=== PATIENT | male | born 1990 | race Caucasian/White ===

== ENCOUNTER 2017-09-01 01:22 | Emergency (ER) | payer OTHER ==
[2017-09-01 01:47] LABS: BASOPHILS # (AUTO) 0.1 10^3/uL (0.0-0.1); BASOPHILS % (AUTO) 0.7 %; EOSINOPHILS # (AUTO) 0.1 10^3/uL (0.0-0.7); EOSINOPHILS % (AUTO) 1.5 %; HGB - HEMOGLOBIN 15.7 g/dL (14.0-18.0); LYMPHOCYTES # (AUTO) 2.6 10^3/uL (1.5-3.5); LYMPHOCYTES % (AUTO) 26.4 %; MEAN CORPUSCULAR HEMOGLOBIN 29.6 pg (27.0-31.0); MEAN CORPUSCULAR HGB CONC 34.9 g/dL (32.0-36.0); MEAN CORPUSCULAR VOLUME 84.9 fL (80.0-94.0); MEAN PLATELET VOLUME 7.8 fL (7.4-11.4); MONOCYTES # (AUTO) 0.8 10^3/uL (0.0-1.0); MONOCYTES % (AUTO) 8.6 %; NEUTROPHILS # (AUTO) 6.1 10^3/uL (1.5-6.6); NEUTROPHILS % (AUTO) 62.8 %; RED CELL DISTRIBUTION WIDTH 13.1 % (12.0-15.0); UNCORRECTED WHITE BLOOD COUNT 9.6 x10^3/uL; WHITE BLOOD COUNT 9.6 x10^3/uL (4.8-10.8)
[2017-09-01 01:57] LABS: ALBUMIN/GLOBULIN RATIO 1.6 (1.0-2.2); BILIRUBIN,TOTAL 0.9 mg/dL (0.2-1.0); CALCIUM 9.1 mg/dL (8.5-10.3); CREATININE 1.2 mg/dL (0.6-1.2); TOTAL PROTEIN 7.9 g/dL (6.7-8.2)
[2017-09-01 01:59] LABS: BILIRUBIN,URINE NEGATIVE (NEGATIVE); PH,URINE 6.5 PH (5.0-7.5)
[2017-09-01 02:04] LABS: UA CHARGE (STRIP ONLY) YES; UR CULTURE IF IND NOT INDICATED
[2017-09-01] MEDS ORDERED: SODIUM CHLORIDE 0.9% 1,000 ML IV ONE (02:19)
[2017-09-01] MEDS ORDERED: SODIUM CHLORIDE FLUSH 0.9% 10 ML SYRINGE IVP ONE ×2 (02:24→04:23)
--- NOTE | 2017-09-01 02:30 | XRAY Preliminary Report ---
Exam: XR ABDOMEN ACUTE IMPRESSION: 1. No acute abnormality seen in the chest or abdomen. [facility] SITE ID: [id number]
--- NOTE | 2017-09-01 02:32 | XRAY Report ---
EXAM: ABDOMINAL SERIES AND PA CHEST EXAM DATE: 09/01/2017 02:06 AM. CLINICAL HISTORY: Abdominal pain, hx of GI surgery. COMPARISON: Chest, 02/04/2016. TECHNIQUE: 2 views abdomen and 1 view chest. FINDINGS: CHEST: Lungs/Pleura: No focal opacities. No effusion or pneumothorax. Mediastinum: Within exam limitations, cardiomediastinal contour is normal. ABDOMEN: Bowel Gas Pattern: No dilated loops or abnormal air-fluid levels. Moderate stool in the right hemicol on. Free Air: None. Other: Status post cholecystectomy. IMPRESSION: 1. No acute abnormality seen in the chest or abdomen. [facility] Referring Provider Line: [phone] SITE ID: [id number]
[2017-09-01] MEDS ORDERED: IOPAMIDOL-300 100 ML VIAL ONE (02:47)
[2017-09-01] MEDS ORDERED: MORPHINE 10 MG/ML VIAL IVP STA ×3 (02:54→04:14)
[2017-09-01] MEDS ORDERED: diphenhydrAMINE INJ 50 MG/ML VIAL IVP STA (03:05)
[2017-09-01] MEDS ORDERED: FAMOTIDINE 20 MG/2 ML VIAL IVP STA (03:05)
[2017-09-01] MEDS ORDERED: MORPHINE 10 MG/ML VIAL ONE ×3 (03:05→04:21)
[2017-09-01] MEDS ORDERED: methylPREDNISolone SUCCINATE 125 MG/2 ML VIAL IVP STA (03:05)
[2017-09-01] MEDS ORDERED: diphenhydrAMINE INJ 50 MG/ML VIAL ONE (03:11)
[2017-09-01] MEDS ORDERED: methylPREDNISolone SUCCINATE 125 MG/2 ML VIAL ONE (03:11)
[2017-09-01] MEDS ORDERED: EPINEPHrine 1 MG/ML AMP ONE ×3 (03:15→03:28)
[2017-09-01] MEDS ORDERED: IOPAMIDOL-300 100 ML VIAL IVP ONE (03:16)
[2017-09-01] MEDS ORDERED: RACEPINEPHRINE 2.25% NEB INH ONE (03:29)
[2017-09-01] MEDS ORDERED: SODIUM CHLORIDE INHALATION 3 ML NEB ONE (03:30)
[2017-09-01] MEDS ORDERED: FAMOTIDINE 20 MG/50 ML 50 ML IV ONE (03:33)
--- NOTE | 2017-09-01 03:33 | CT Preliminary Report ---
Exam: CT ABDOMEN/PELVIS W/ IMPRESSION: 1. Inflammatory changes in the fat adjacent to the colon at the junction of the descending and sigmoi d colon, consistent with epiploic appendagitis. 2. No other acute abnormality seen. [facility] SITE ID: [id number]
--- NOTE | 2017-09-01 03:35 | CT Report ---
EXAM: CT ABDOMEN AND PELVIS EXAM DATE: 09/01/2017 02:58 AM. CLINICAL HISTORY: Abdominal pain. COMPARISONS: Abdomen radiographs, 09/01/2017. TECHNIQUE: Routine helical CT imaging was performed through the abdomen and pelvis. IV contrast: Kim onic. Enteric contrast: No. Reconstructions: Coronal and sagittal. In accordance with CT protocol optimization, one or more of the following dose reduction techniques w ere utilized for this exam: automated exposure control, adjustment of mA and/or KV based on patient s ize, or use of iterative reconstructive technique. FINDINGS: Lung Bases: Minimal bibasilar atelectasis. Liver: No focal lesion identified. Gallbladder/Bile Ducts: Status post cholecystectomy. Spleen: Normal. Pancreas: Normal. Adrenal Glands: Normal. Kidneys: Normal. No masses or hydronephrosis. Peritoneal Cavity/Bowel: No bowel obstruction seen. No lymphadenopathy. No free air or free fluid. In flammatory changes in the fat at the junction of the descending and sigmoid colon, for example series 3 image 63, consistent with epiploic appendagitis. No definite diverticulitis. Appendix is not seen. No evidence of appendicitis. Pelvic Organs: Normal. The bladder and visualized pelvic organs are within normal limits. Vasculature: No aneurysms or other significant abnormality. Bones: No significant abnormality. Other: None. IMPRESSION: 1. Inflammatory changes in the fat adjacent to the colon at the junction of the descending and sigmoi d colon, consistent with epiploic appendagitis. 2. No other acute abnormality seen. [facility] Referring Provider Line: [phone] SITE ID: [id number]
--- NOTE | 2017-09-01 03:52 | ED Physician Documentation ---
PD HPI ABD PAIN - Stated complaint Stated Complaint: ABD PX - Chief complaint Chief Complaint: Abd Pain - History obtained from History obtained from: Patient, Family - History of Present Illness Timing - onset: Today Timing - details: Abrupt onset, Still present Quality: Aching, Sharp Location: LLQ Worsened by: Position, Palpation Associated symptoms: No: Fever, Nausea, Vomiting, Diarrhea, Constipation Similar symptoms before: Has not had sx before Recently seen: Not recently seen - Additional information Additional information: Patient is a 27 year old male, status post cholecystectomy who is presenting to the emergency department for left lower quadrant pain. Patient states that it yesterday yesterday. it is sharp in nature, with mild radiation to his back. Patient states similar to his gallbladder pain. Patient stateds that he had a normal bowel movement yesterday. Patient denies any testicular pain or urinary complaints. Review of Systems Constitutional: denies: Fever, Chills Eyes: reports: Reviewed and negative Ears: reports: Reviewed and negative Nose: reports: Reviewed and negative Throat: reports: Reviewed and negative Cardiac: denies: Chest pain / pressure, Palpitations Respiratory: denies: Cough, Wheezing GI: reports: Abdominal Pain. denies: Nausea, Vomiting, Constipation, Diarrhea : denies: Dysuria, Frequency, Unable to Void Skin: denies: Rash, Lesions Musculoskeletal: reports: Back pain. denies: Neck pain Neurologic: denies: Generalized weakness, Focal weakness Immunocompromised: denies: Immunocompromised PD PAST MEDICAL HISTORY - Past Medical History Past Medical History: No Cardiovascular: None Respiratory: None Neuro: None Endocrine/Autoimmune: None GI: None : None HEENT: None Psych: None Musculoskeletal: None Derm: None - Past Surgical History Past Surgical History: Yes General: Cholecystectomy, Appendectomy HEENT: Tonsil/Adenoidectomy - Present Medications Home Medications: Ambulatory Orders Medication Instructions Recorded Confirmed Hydrocodone/Acetaminophen 1 - 2 each PO Q6H PRN #14 tablet 09/01/17 [Hydrocodon-Acetaminophen 5-325] Ondansetron Odt [Zofran] 4 mg TL Q6H PRN #20 tablet 09/01/17 Prednisone 40 mg PO DAILY 5 Days tablet 09/01/17 - Allergies Allergies/Adverse Reactions: Allergies Allergy/AdvReac Type Severity Reaction Status Date / Time Iodinated Contrast- Oral and Allergy Severe Anaphylaxis Verified 09/01/17 03:40 IV Dye - Social History Does the pt smoke?: No Smoking Status: Never smoker Does the pt drink ETOH?: No Does the pt have substance abuse?: No - Immunizations Immunizations are current?: Yes - POLST Patient has POLST: No PD ED PE NORMAL - Vitals Vital signs reviewed: Yes - General General: Alert and oriented X 3, Well developed/nourished - HEENT HEENT: Atraumatic, PERRL - Neck Neck: Supple, no meningeal sign, No JVD - Cardiac Cardiac: RRR, No murmur - Respiratory Respiratory: No respiratory distress, Clear bilaterally - 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 No: Distended, Rebound Results - Vitals Vitals: Vital Signs - 24 hr 09/01/17 09/01/17 09/01/17 01:28 03:16 03:30 Temperature 36.4 C L Heart Rate 73 99 85 Respiratory 18 24 20 Rate Blood Pressure 153/88 H 137/80 H O2 Saturation 96 97 09/01/17 09/01/17 09/01/17 03:40 03:57 04:46 Temperature Heart Rate 91 73 79 Respiratory 24 16 16 Rate Blood Pressure 133/84 H 132/84 H 143/89 H O2 Saturation 98 98 95 09/01/17 05:04 Temperature Heart Rate 98 Respiratory 17 Rate Blood Pressure 137/85 H O2 Saturation 97 Oxygen O2 Source Nasal cannula - EKG (time done) 0422 Rate: Rate (enter#) (68) Rhythm: NSR [place]: Normal Intervals: Normal [place] QRS: Normal Ischemia: Normal ST segments - Labs Labs: Laboratory Tests 09/01/17 09/01/17 09/01/17 01:40 01:40 01:50 WBC 9.6 RBC 5.30 Hgb 15.7 Hct 45.0 MCV 84.9 MCH 29.6 MCHC 34.9 RDW 13.1 Plt Count 252 MPV 7.8 Neut # 6.1 Lymph # 2.6 [place] # 0.8 Eos # 0.1 Baso # 0.1 Absolute Nucleated RBC 0.00 Nucleated RBC % 0.0 Sodium 137 Potassium 4.0 Chloride 101 Carbon Dioxide 26 Anion Gap 10.0 BUN 16 Creatinine 1.2 Estimated GFR (MDRD) 72 L Glucose 88 Calcium 9.1 Total Bilirubin 0.9 AST 35 ALT 31 Alkaline Phosphatase 85 Total Protein 7.9 Albumin 4.9 Globulin 3.0 Albumin/Globulin Ratio 1.6 Lipase 19 L Urine Color YELLOW Urine Clarity CLEAR Urine pH 6.5 Ur Specific [place] 1.015 Urine Protein NEGATIVE Urine Glucose (UA) NEGATIVE Urine Ketones NEGATIVE Urine Occult Blood TRACE-INTA Urine Nitrite NEGATIVE Urine Bilirubin NEGATIVE Urine Urobilinogen 0.2 (NORMAL) Ur Leukocyte Esterase NEGATIVE Ur Microscopic Review NOT INDICATED Urine Culture Comments NOT INDICATED - Rads (name of study) abd series Radiology: Final report received (no acute abnormalities) ct abdomen and pelvis Radiology: Final report received (epiplic appendagitis) PD MEDICAL DECISION MAKING - ED course Complexity details: reviewed old records, reviewed results, re-evaluated patient , considered differential, d/w patient, d/w family ED course: Patient was seen and examined at bedside. labs were drawn and urine was collected. Abdominal series was ordered and was within normal limits. Patient was treated with ns bolus and morphine was ordered as well as abdominal CT. When patient returned from CT he had had an allergic reaction. Patient had wheezing and some facial swelling. Patient was treated with solumedrol, bendaryl 50mg, epinephrine(IM and racemic) and pepcid as well as iv fluids. Patient responded well to the therapy and the allergic side effects diminished. Patient was treated with morphine for pain. Patient's findings were consistent with epiploic appendagitis. Patient completed of back pain with radiation to his chest so an ekg was performed and was within normal limits. Upon discharge patient had no signs of allergic reaction and stated that he was hungry and wanted to eat. Patient was given detailed discharge instructions and was stable for discharge with outpatient follow up. Departure - Departure Disposition: 01 Home, Self Care Clinical Impression: Epiploic appendagitis Condition: Good Instructions: Abdominal Pain Follow-Up: Logan Quintanilla MD [Provider Admit Priv/Credential] - Within 3 Days Prescriptions: Hydrocodone/Acetaminophen [Hydrocodon-Acetaminophen 5-325] 1 - 2 each PO Q6H PRN #14 tablet PRN Reason: pain Ondansetron Odt [Zofran] 4 mg TL Q6H PRN #20 tablet PRN Reason: Nausea / Vomiting Prednisone 40 mg PO DAILY 5 Days tablet Comments: Your symptoms today were being caused by epiploic appendagitis. It is twisting of your intestines. It is normally self limited in nature normally lasting 3- 10 days. You should take motrin for pain and percocet for breakthrough pain. You should follow up with Dr. Quintanilla if the symptoms persist though the weekend. Your other symptoms were caused by an allergic reaction. You should take steroids for the next for days and benadryl and pepcid. You should never take IV contrast again. You can return to the emergency department at any time for new, worsening or uncontrollable symptoms, shortness of breath wheezing. Forms: Activity restrictions
[2017-09-01] MEDS ORDERED: KETOROLAC 15 MG/ML VIAL IVP STA (04:15)
[2017-09-01] MEDS ORDERED: KETOROLAC 15 MG/ML VIAL ONE (04:21)
[2017-09-01] MEDS ORDERED: oxyCODONE/ACET 5/325 Prepack 4 PO STA (05:48)
[2017-09-01 06:08] VITALS: BP 156/87
[2017-09-01] MEDS ORDERED: oxyCODONE/ACET 5/325 Prepack 4 PO ONE (06:08)
== END 2017-09-01 06:17 | disposition home or self-care (01) ==
LOC: ED 01:22
DX: K63.89 Other specified diseases of intestine (principal); Z90.49 Acquired absence of other specified parts of digestive tract; R07.9 Chest pain, unspecified; T78.40XA Allergy, unspecified, initial encounter; R06.2 Wheezing; R22.0 Localized swelling, mass and lump, head
CPT/HCPCS: 36415; 74022; 74177; 80053; 81003; 83690; 85025; 93005; 94640; 96361; 96374; 96375; 96376; 99284; 99285; A9270; Q9967; 81001; 87086

== ENCOUNTER 2018-09-17 13:03 | Outpatient (CLI) | payer OTHER | END 2018-09-17 13:04 | disposition critical access hospital (66) | LOC: EMS 13:03 | PROVIDERS: ATTEND Surgery | DX: R55 Syncope and collapse (principal) | CPT/HCPCS: A0425; A0427 ==

== ENCOUNTER 2018-09-17 13:28 | Emergency (ER) | payer OTHER ==
[2018-09-17] MEDS ORDERED: SODIUM CHLORIDE 0.9% 1,000 ML IV ONE (13:37)
[2018-09-17 13:56] LABS: BASOPHILS # (AUTO) 0.1 10^3/uL (0.0-0.1); BASOPHILS % (AUTO) 1.2 %; EOSINOPHILS # (AUTO) 0.1 10^3/uL (0.0-0.7); EOSINOPHILS % (AUTO) 1.5 %; HGB - HEMOGLOBIN 14.3 g/dL (14.0-18.0); LYMPHOCYTES # (AUTO) 1.2 10^3/uL (1.5-3.5); LYMPHOCYTES % (AUTO) 23.2 %; MEAN CORPUSCULAR VOLUME 85.8 fL (80.0-94.0); MEAN PLATELET VOLUME 7.4 fL (7.4-11.4); MONOCYTES # (AUTO) 0.5 10^3/uL (0.0-1.0); MONOCYTES % (AUTO) 8.7 %; NEUTROPHILS # (AUTO) 3.5 10^3/uL (1.5-6.6); NEUTROPHILS % (AUTO) 65.4 %; PLT - PLATELET COUNT 240 10^3/uL (130-450); RED BLOOD COUNT 4.77 10^6/uL (4.70-6.10); RED CELL DISTRIBUTION WIDTH 13.2 % (12.0-15.0); WHITE BLOOD COUNT 5.3 x10^3/uL (4.8-10.8)
[2018-09-17 14:09] LABS: ALBUMIN 4.8 g/dL (3.2-5.5); ALBUMIN/GLOBULIN RATIO 1.7 (1.0-2.2); BILIRUBIN,TOTAL 0.9 mg/dL (0.2-1.0); CALCIUM 9.1 mg/dL (8.5-10.3); CREATININE 1.1 mg/dL (0.6-1.2); TOTAL PROTEIN 7.7 g/dL (6.7-8.2)
--- NOTE | 2018-09-17 14:34 | XRAY Report ---
Reason: syncope Procedure Date: 09/17/2018 Accession Number: [id number] / [id number] Procedure: XR - Chest 2 View X-Ray CPT Code: 35081 FULL RESULT: EXAM: CHEST RADIOGRAPHY EXAM DATE: 09/17/2018 02:12 PM. CLINICAL HISTORY: Syncope. COMPARISON: None. TECHNIQUE: 2 views. FINDINGS: Lungs/Pleura: No focal opacities evident. No pleural effusion. No pneumothorax. Normal volumes. Mediastinum: Heart and mediastinal contours are unremarkable. Other: Negative bony structures. Surgical clips right upper quadrant. IMPRESSION: Normal 2-view chest radiography. [facility]
--- NOTE | 2018-09-17 14:43 | ED Physician Documentation ---
PD HPI SYNCOPE - Stated complaint Stated Complaint: SYNCOPE - Chief complaint Chief Complaint: Neuro - Additional information Additional information: 28-year-old male was brought to the emergency department for evaluation of a syncopal episode which occurred today while at work. 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 The patient denies chest pain or palpitations before or after the event. Presently, the patient feels somewhat back to his baseline. The patient did smoke a cigarette about 30 minutes prior to this. The patient is not had tobacco in over 1 month. No other new lifestyle changes. No new medication changes. Symptoms currently have resolved spontaneously. No other associated symptoms Review of Systems Constitutional: denies: Fever Eyes: denies: Discharge Ears: denies: Ear pain Nose: denies: Congestion Throat: denies: Sore throat Cardiac: denies: Chest pain / pressure, Palpitations Respiratory: denies: Cough GI: denies: Abdominal Pain : denies: Dysuria Skin: denies: Rash Musculoskeletal: denies: Neck pain Neurologic: reports: Syncope. denies: Generalized weakness, Focal weakness, Headache Immunocompromised: denies: Chemotherapy PD PAST MEDICAL HISTORY - Past Medical History Past Medical History: No Cardiovascular: None Respiratory: None Neuro: None Endocrine/Autoimmune: None GI: None : None HEENT: None Psych: None Musculoskeletal: None Derm: None - Past Surgical History Past Surgical History: Yes General: Cholecystectomy, Appendectomy HEENT: Tonsil/Adenoidectomy - Present Medications Home Medications: Ambulatory Orders Medication Instructions Recorded Confirmed Cyclobenzaprine [Flexeril] 10 mg PO 09/17/18 - Allergies Allergies/Adverse Reactions: Allergies Allergy/AdvReac Type Severity Reaction Status Date / Time Iodinated Contrast- Oral and Allergy Severe Anaphylaxis Verified 09/17/18 13:36 IV Dye - Social History Does the pt smoke?: Yes Smoking Status: Former smoker Does the pt drink ETOH?: No Does the pt have substance abuse?: No - Immunizations Immunizations are current?: Yes - POLST Patient has POLST: No PD ED PE NORMAL - General General: Alert and oriented X 3, No acute distress - HEENT HEENT: Atraumatic, PERRL, EOMI, Ears normal - Neck Neck: Supple, no meningeal sign, No bruit - Cardiac Cardiac: RRR, Strong equal pulses - Respiratory Respiratory: No respiratory distress - Abdomen Abdomen: Soft, Non tender, Non distended - Derm Derm: Normal color - Extremities Extremities: No deformity, Normal ROM s pain, No edema - Neuro Neuro: Alert and oriented X 3, service writer 2-12 intact, No motor deficit, Normal speech - Psych Psych: Normal affect Results - Vitals Vitals: Vital Signs - 24 hr 09/17/18 13:30 Temperature 36.6 C Heart Rate 77 Respiratory 20 Rate Blood Pressure 129/91 H O2 Saturation 97 Oxygen O2 Source Room air - EKG (time done) 13:37 Rate: Rate (enter#) Rhythm: NSR Intervals: Normal [place], QRS normal QRS: Normal Ischemia: Normal ST segments - Labs Labs: Laboratory Tests 09/17/18 09/17/18 09/17/18 13:52 13:52 13:52 WBC 5.3 RBC 4.77 Hgb 14.3 Hct 40.9 L MCV 85.8 MCH 30.0 MCHC 35.0 RDW 13.2 Plt Count 240 MPV 7.4 Neut # (Auto) 3.5 Lymph # (Auto) 1.2 L [place] # (Auto) 0.5 Eos # (Auto) 0.1 Baso # (Auto) 0.1 Absolute Nucleated RBC 0.00 Nucleated RBC % 0.0 Sodium 137 Potassium 3.9 Chloride 98 L Carbon Dioxide 26 Anion Gap 13.0 BUN 26 H Creatinine 1.1 Estimated GFR (MDRD) 79 L Glucose 103 H Calcium 9.1 Total Bilirubin 0.9 AST 37 ALT 31 Alkaline Phosphatase 72 Troponin I < 0.04 Total Protein 7.7 Albumin 4.8 Globulin 2.9 Albumin/Globulin Ratio 1.7 Lipase 22 - Rads (name of study) CXR Radiology: Final report received, See rad report (IMPRESSION: Normal 2-view chest radiography. ) PD MEDICAL DECISION MAKING - ED course ED course: On reevaluation the patient is resting comfortably, the patient's workup does not reveal a clear etiology for the source of the patient's symptoms. The patient's EKG is unremarkable. The patient is otherwise healthy and has no history of structural heart disease. The patient currently appears appropriate for discharge and further workup as an outpatient. I recommended that he should get a Holter monitor and echocardiogram to further assess the symptoms. The patient understands and agrees. The [place] Discussed warning signs and recommended returning to the emergency department immediately for any worsening or any concerns. Departure - Departure Disposition: 01 Home, Self Care Clinical Impression: Syncope Qualifiers: Syncope type: unspecified Qualified Code(s): R55 - Syncope and collapse Condition: Good Instructions: ED Syncope Vasovagal, ED Fainting Unkn Cause Follow-Up: TIA POND [Primary Care Provider] - Within 3 Days (Please ask your primary care physician to arrange for an outpatient Holter monitor and echocardiogram to further assess your symptoms.) Comments: Please return to the emergency department immediately for any worsening or any concerns.
[2018-09-17 15:01] VITALS: BP 143/75
== END 2018-09-17 15:12 | disposition home or self-care (01) ==
LOC: EDUNIT# → ED 13:28
DX: R55 Syncope and collapse (principal); Z87.891 Personal history of nicotine dependence
CPT/HCPCS: 36415; 71046; 80053; 83690; 84484; 85025; 93005; 96360; 99284

== ENCOUNTER 2019-04-04 23:41 | Emergency (ER) | payer OTHER ==
[2019-04-04 23:47] VITALS: BP 148/96
--- NOTE | 2019-04-04 23:58 | ED Physician Documentation ---
History of Present Illness - Stated complaint Stated Complaint: INHALATION - Chief complaint Chief Complaint: General - History obtained from History obtained from: Patient - History of Present Illness Timing: Today Pain level max: 0 Pain level now: 0 - Additonal information Additional information: 28-year-old male, active [employer] was found huffing canned air at work today. States he used approximately 3 cans today. Last was approximately 2 to 3 hours ago. He is asymptomatic. No chest pain. No shortness of breath. No headache. No palpitations. Not suicidal or homicidal. Nothing makes it better or worse Review of Systems Constitutional: denies: Fever, Chills Respiratory: denies: Cough GI: denies: Abdominal Pain, Nausea, Vomiting, Diarrhea Skin: denies: Rash Musculoskeletal: denies: Neck pain, Back pain Neurologic: denies: Headache PD PAST MEDICAL HISTORY - Past Medical History Cardiovascular: None Respiratory: None Neuro: None Endocrine/Autoimmune: None GI: None : None HEENT: None Psych: None Musculoskeletal: None Derm: None - Past Surgical History Past Surgical History: Yes General: Cholecystectomy, Appendectomy HEENT: Tonsil/Adenoidectomy - Present Medications Home Medications: Ambulatory Orders Medication Instructions Recorded Confirmed Sertraline HCl [Zoloft] 100 mg PO DAILY 04/04/19 04/04/19 Trazodone HCl 50 mg PO DAILY 04/04/19 04/04/19 - Allergies Allergies/Adverse Reactions: Allergies Allergy/AdvReac Type Severity Reaction Status Date / Time Iodinated Contrast- Oral and Allergy Severe Anaphylaxis Verified 04/04/19 23:47 IV Dye - Social History Does the pt smoke?: Yes Smoking Status: Former smoker Does the pt drink ETOH?: No Does the pt have substance abuse?: No - Immunizations Immunizations are current?: Yes - POLST Patient has POLST: No PD ED PE NORMAL - Vitals Vital signs reviewed: Yes - General General: Alert and oriented X 3, No acute distress, Well developed/nourished - HEENT HEENT: Moist mucous membranes - Neck Neck: Supple, no meningeal sign - Cardiac Cardiac: RRR, Strong equal pulses - Respiratory Respiratory: No respiratory distress, Clear bilaterally - Abdomen Abdomen: Soft, Non tender, Non distended - Derm Derm: Warm and dry, No rash - Extremities Extremities: No edema - Neuro Neuro: Alert and oriented X 3 - Psych Psych: Normal mood, Normal affect Results - Vitals Vitals: Vital Signs - 24 hr 04/04/19 23:43 Temperature 36.4 C L Heart Rate 80 Respiratory 16 Rate Blood Pressure 148/96 H O2 Saturation 97 Oxygen O2 Source Room air - EKG (time done) 0004 Rate: Rate (enter#) (68) Rhythm: NSR, Other (PVC) [place]: Normal Intervals: Normal [place] QRS: Normal Ischemia: Normal ST segments PD MEDICAL DECISION MAKING - ED course Complexity details: reviewed results, re-evaluated patient, considered differential, d/w patient ED course: Patient's presents after huffing cans of air. Discussed with poison control. Patient is asymptomatic. Patient will follow up with his doctor on Monday. 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 No specific recommendations other than an EKG from poison control. Patient counseled regarding signs and symptoms for which I believe and urgent re-evaluation would be necessary. Patient with good understanding of and agreement to plan and is comfortable going home at this time This document was made in part using voice recognition software. While efforts are made to proofread this document, sound alike and grammatical errors may occur. Departure - Departure Disposition: Home, Self Care Clinical Impression: Inhalant abuse Condition: Good Instructions: ED Drug Abuse General Follow-Up: TIA POND [Primary Care Provider] - Within 1 week Comments: Follow up with your doctor on Monday for further care. Return if you develop shortness of breath, chest pain or any other new symptoms. Stop inhaling compressed air. Discharge Date/Time: 04/05/19 00:15
== END 2019-04-05 00:15 | disposition home or self-care (01) ==
LOC: ED 23:41
DX: F18.10 Inhalant abuse, uncomplicated (principal); I49.3 Ventricular premature depolarization; Z87.891 Personal history of nicotine dependence
CPT/HCPCS: 93005; 99282; 99283